=== PATIENT | female | born 1990 | race Caucasian/White ===

== ENCOUNTER 2019-11-22 06:00 | Inpatient (IN) ==
[2019-11-22] MEDS ORDERED: Famotidine 20 MG/2 ML VIAL IVP PRN (06:09)
[2019-11-22] MEDS ORDERED: Metoclopramide 10 MG/2 ML VIAL IVP PRN ×2 (06:09→12:01)
[2019-11-22] MEDS ORDERED: Azithromycin 500 MG in 0.9 % Sodium Chloride 250 ML IVPB ONE (06:09)
[2019-11-22] MEDS ORDERED: Naloxone 0.4 MG/ML INJ IVP PRN (06:09)
[2019-11-22] MEDS ORDERED: Ringers Solution, Lactated 1,000 ML IVC ONE (06:11)
[2019-11-22] MEDS ORDERED: ceFAZolin 2,000 MG in 0.9 % Sodium Chloride 100 ML IVPB ONE (06:12)
[2019-11-22] MEDS ORDERED: Ringers Solution, Lactated 1,000 ML IVC SCH (06:15)
[2019-11-22 06:35] LABS: Basophils % 0.3 %; Eosinophils # 0.1 K/mcL (0.0-0.6); Eosinophils % 1.3 %; Hematocrit 42.4 % (35.3-44.9); Hemoglobin 13.9 g/dL (11.5-15.4); Immature Granulocytes % 0.3 % (0-4); Lymphocytes # 1.9 K/mcL (0.6-4.6); Lymphocytes % 26.8 %; Mean Corpuscular HGB Conc 32.8 g/dL (31.6-35.5); Mean Corpuscular Hemoglobin 29.4 pg (28.0-33.3); Mean Corpuscular Volume 89.8 fL (83.0-100.0); Monocytes # 0.4 K/mcL (0.0-1.3); Neutrophils # 4.6 K/mcL (1.6-8.9); Nucleated Red Blood Cells 0.3 /100 WBC (0); Platelet Count 197 K/mcL (140-400); Red Blood Count 4.72 M/mcL (3.82-4.97); Red Cell Distribution Width 13.5 % (11.5-14.5); Segmented Neutrophils % 65.3 %
[2019-11-22] MEDS ORDERED: *HR* OxyCODONE/APAP 5/325 TABLET PO PRN (07:08)
[2019-11-22] MEDS ORDERED: Ondansetron 4 MG/2 ML VIAL IVP PRN ×2 (07:08→12:01)
[2019-11-22] MEDS ORDERED: Ibuprofen 400 MG TABLET PO PRN (07:08)
[2019-11-22] MEDS ORDERED: Acetaminophen IV 1,000 MG/100 ML BAG IVPB ONE (07:09)
[2019-11-22] MEDS ORDERED: *HR* Oxytocin 10 UNIT/ML VIAL IM ONE (07:24)
[2019-11-22] MEDS ORDERED: *HR* FentaNYL (PF) 100 MCG/2 ML VIAL ONE (07:24)
[2019-11-22] MEDS ORDERED: Ondansetron 4 MG/2 ML VIAL ONE (07:24)
[2019-11-22] MEDS ORDERED: EPHEDrine 50 MG/ML VIAL ONE (07:24)
[2019-11-22] MEDS ORDERED: *HR* Morphine Sulfate/PF 10 MG/10 ML AMPUL ONE (07:24)
[2019-11-22] MEDS ORDERED: Ringers Solution, Lactated 1,000 ML ONE ×2 (08:05→08:31)
[2019-11-22] MEDS ORDERED: Acetaminophen IV 1,000 MG/100 ML BAG ONE (08:16)
[2019-11-22] MEDS ORDERED: *HR* Phenylephrine 10 MG/ML VIAL ONE (08:33)
[2019-11-22 08:57] LABS: Amphetamine Screen,Urine Negative ng/mL (Cutoff=1000); Barbiturate Screen,Urine Negative ng/mL (Cutoff=200); Benzodiazepines Screen,Urine Negative ng/mL (Cutoff=200); Cannabinoid Screen,Urine Negative ng/mL (Cutoff = 50); Cocaine Screen,Urine Negative ng/mL (Cutoff= 300); Opiate Screen,Urine Negative ng/mL (Cutoff=300); Phencyclidine Screen,Urine Negative ng/mL (Cutoff=25)
[2019-11-22] MEDS ORDERED: Sennosides 8.6 MG TABLET PO PRN (12:01)
[2019-11-22] MEDS ORDERED: Rho Immune Globulin 1,500 UNIT SYRINGE IM ONE (12:01)
[2019-11-22] MEDS ORDERED: *HR* OxyCODONE Immed Rel 5 MG TABLET PO PRN (12:01)
[2019-11-22] MEDS ORDERED: Simethicone 80 MG TAB.CHEW PO PRN (12:01)
[2019-11-22] MEDS: Oxytocin 20 units/ LR 1000 mL 20 UNIT/1,000 ML BAG IVC SCH ×2 (12:27→20:26)
[2019-11-22] MEDS: Ibuprofen 600 MG TABLET PO SCH ×2 (19:41→19:51)
[2019-11-22] MEDS: Acetaminophen 325 MG TABLET PO SCH ×2 (19:42→19:52)
[2019-11-23] MEDS: Acetaminophen 325 MG TABLET PO SCH ×3 (00:27→12:11)
[2019-11-23] MEDS: Ibuprofen 600 MG TABLET PO SCH ×3 (00:27→12:10)
[2019-11-23] MEDS ORDERED: Prenatal Vit/FA 1 EACH TABLET PO SCH (09:00)
[2019-11-23 09:01] VITALS: BP 93/59
[2019-11-23 09:50] LABS: Basophils % 0.4 %; Eosinophils # 0.1 K/mcL (0.0-0.6); Hematocrit 36.7 % (35.3-44.9); Immature Granulocytes % 0.4 % (0-4); Lymphocytes # 1.4 K/mcL (0.6-4.6); Lymphocytes % 19.1 %; Mean Corpuscular HGB Conc 32.4 g/dL (31.6-35.5); Mean Corpuscular Hemoglobin 29.9 pg (28.0-33.3); Mean Corpuscular Volume 92.2 fL (83.0-100.0); Mean Platelet Volume 10.1 fL (9.4-12.4); Monocytes # 0.5 K/mcL (0.0-1.3); Monocytes % 7.2 %; Neutrophils # 5.3 K/mcL (1.6-8.9); Platelet Count 154 K/mcL (140-400); Red Blood Count 3.98 M/mcL (3.82-4.97); Red Cell Distribution Width 13.9 % (11.5-14.5); Segmented Neutrophils % 71.9 %; White Blood Count 7.3 K/mcL (4.3-11.1)
[2019-11-23 09:55] LABS: Hemoglobin 11.9 g/dL (11.5-15.4)
== END 2019-11-23 13:25 | disposition home or self-care (01) | DRG 788 ==
LOC: 1NENULAB 06:00 → 1NENUOBS 11:40
PROVIDERS: ADMIT Obstetrics & Gynecology; ATTEND Obstetrics & Gynecology